=== PATIENT | female | born 1935 | race Caucasian/White ===

== ENCOUNTER 2018-08-06 17:02 | Emergency (ER) | payer MEDICARE, OTHER ==
[~2018-08-06] VITALS: Ht 167.6 cm; Wt 53.3 kg
[2018-08-06 18:25] LABS: ALANINE AMINOTRANSFERASE 105 U/L (12-78); ALBUMIN 3.4 g/dL (3.4-5.0); ANION GAP 11 mmol/L (5-15); CALCIUM 8.9 mg/dL (8.5-10.1); CHLORIDE 107 mmol/L (98-107); CREATININE 0.79 mg/dL (0.55-1.02)
[2018-08-06 18:29] LABS: ALKALINE PHOSPHATASE 154 U/L (45-117); BILIRUBIN,TOTAL 0.5 mg/dL (0.2-1.0); TOTAL PROTEIN 6.7 g/dL (6.4-8.2); TROPONIN I < 0.015 ng/mL (0.000-0.045)
[2018-08-06 19:48] LABS: BASOPHILS # (AUTO) 0.02 x10^3/uL (0-0.1); BASOPHILS % (AUTO) 0 % (0-1); EOSINOPHILS # (AUTO) 0.04 x10^3/uL (0-0.4); EOSINOPHILS % (AUTO) 1 % (1-7); LYMPHOCYTES % (AUTO) 14 % (22-44); MD NO; MEAN CORPUSCULAR HEMOGLOBIN 30.7 pg (27.0-34.8); MEAN CORPUSCULAR HGB CONC 33.4 g/dL (32.4-35.8); MEAN CORPUSCULAR VOLUME 91.8 fL (80-100); MEAN PLATELET VOLUME 8.9 fL (7.4-10.4); MONOCYTES # (AUTO) 0.19 x10^3/uL (0.2-0.8); MONOCYTES % (AUTO) 4 % (2-9); NEUTROPHILS # (AUTO) 4.25 x10^3/uL (1.8-6.8); NEUTROPHILS % (AUTO) 82 % (42-75); PLATELET COUNT 148 x10^3/uL (130-400); RED BLOOD COUNT 4.69 x10^6/uL (3.82-5.3); RED CELL DISTRIBUTION WIDTH 14.3 % (9.6-15.2)
[2018-08-06] MEDS ORDERED: LORazepam 0.5MG TABLET PO ONE (20:00)
[2018-08-06 21:23] VITALS: BP 136/113
== END 2018-08-06 21:26 | disposition home or self-care (01) ==
LOC: ED 17:20
DX: I71.4 Abdominal aortic aneurysm, without rupture (principal); K44.9 Diaphragmatic hernia without obstruction or gangrene; Z87.891 Personal history of nicotine dependence; Z90.89 Acquired absence of other organs
CPT/HCPCS: 36415; 71045; 76700; 80053; 84484; 85025; 93005; 99285

== ENCOUNTER 2018-08-15 16:33 | Emergency (ER) | payer MEDICARE, OTHER ==
[2018-08-15 17:26] LABS: BASOPHILS # (AUTO) 0.02 x10^3/uL (0-0.1); BASOPHILS % (AUTO) 1 % (0-1); EOSINOPHILS # (AUTO) 0.03 x10^3/uL (0-0.4); EOSINOPHILS % (AUTO) 1 % (1-7); LYMPHOCYTES # (AUTO) 0.93 x10^3/uL (1-3.4); LYMPHOCYTES % (AUTO) 27 % (22-44); MD NO; MEAN CORPUSCULAR HEMOGLOBIN 30.7 pg (27.0-34.8); MEAN CORPUSCULAR HGB CONC 33.6 g/dL (32.4-35.8); MEAN CORPUSCULAR VOLUME 91.4 fL (80-100); MEAN PLATELET VOLUME 8.5 fL (7.4-10.4); MONOCYTES # (AUTO) 0.29 x10^3/uL (0.2-0.8); MONOCYTES % (AUTO) 9 % (2-9); NEUTROPHILS # (AUTO) 2.13 x10^3/uL (1.8-6.8); NEUTROPHILS % (AUTO) 63 % (42-75); PLATELET COUNT 143 x10^3/uL (130-400); RED BLOOD COUNT 4.73 x10^6/uL (3.82-5.3); RED CELL DISTRIBUTION WIDTH 13.9 % (9.6-15.2)
[2018-08-15 17:36] LABS: ALANINE AMINOTRANSFERASE 70 U/L (12-78); ALBUMIN 3.7 g/dL (3.4-5.0); ANION GAP 7 mmol/L (5-15); CALCIUM 9.2 mg/dL (8.5-10.1); CHLORIDE 106 mmol/L (98-107)
[2018-08-15 17:37] LABS: ALKALINE PHOSPHATASE 108 U/L (45-117); BILIRUBIN,TOTAL 0.5 mg/dL (0.2-1.0); TOTAL PROTEIN 7.1 g/dL (6.4-8.2)
[2018-08-15 17:54] VITALS: BP 185/90
[2018-08-15 18:29] LABS: CULTURE INDICATED? YES; MICROSCOPIC INDICATED
[2018-08-15] MEDS ORDERED: NITROFURANTOIN 50 MG CAPSULE PO ONE (19:00)
== END 2018-08-15 19:49 | disposition home or self-care (01) ==
LOC: ED 19:04 → EDBD 19:04 → ED 19:49
DX: N30.90 Cystitis, unspecified without hematuria (principal); I10 Essential (primary) hypertension
CPT/HCPCS: 36415; 71046; 80053; 81001; 85025; 87077; 87086; 87186; 93005; 99285

== ENCOUNTER 2018-08-24 15:44 | Emergency (ER) | payer MEDICARE, OTHER ==
[~2018-08-24] VITALS: Ht 165.1 cm; Wt 53.0 kg
[2018-08-24] MEDS ORDERED: TROPICAMIDE OPHTH 1%, 15ML OP ONE (17:00)
[2018-08-24 18:57] VITALS: BP 136/81
== END 2018-08-24 18:59 | disposition home or self-care (01) ==
LOC: ED 16:05
DX: H53.123 Transient visual loss, bilateral (principal); I10 Essential (primary) hypertension; Z90.49 Acquired absence of other specified parts of digestive tract
CPT/HCPCS: 99283

== ENCOUNTER 2018-08-26 12:43 | Emergency (ER) | payer OTHER ==
[~2018-08-26] VITALS: Ht 165.1 cm; Wt 53.5 kg
[2018-08-26 12:57] VITALS: BP 174/63
== END 2018-08-26 14:00 | disposition home or self-care (01) ==
LOC: ED 13:54
DX: T47.1X5A Adverse effect of other antacids and anti-gastric-secretion drugs, initial encounter (principal); Y92.9 Unspecified place or not applicable
CPT/HCPCS: 99281

== ENCOUNTER → 2018-10-25 | Outpatient (CLI) | payer MEDICARE, OTHER ==
[~2018-10-25] MED LIST: NONE PER PT
== END | disposition home or self-care (01) ==
LOC: STAR 12:53
PROVIDERS: ATTEND Thoracic Surgery (Cardiothoracic Vascular Surgery)
DX: Z01.818 Encounter for other preprocedural examination (principal); K44.9 Diaphragmatic hernia without obstruction or gangrene

== ENCOUNTER 2018-10-30 06:48 | Inpatient (IN) | payer MEDICARE, OTHER ==
[~2018-10-30] VITALS: Ht 152.4 cm; Wt 49.2 kg
[~2018-10-30 06:48] MED LIST changes: +BUPIVACAINE/PF-EPI 0.5% 1:200K ONE
[2018-10-30] MEDS ORDERED: LACTATED RINGERS 1,000 ML IV SCH (08:35)
[2018-10-30] MEDS ORDERED: GABAPENTIN 300 MG CAPSULE PO STA (08:45)
[2018-10-30] MEDS ORDERED: APREPITANT 40 MG CAPSULE PO STA (08:45)
[2018-10-30] MEDS ORDERED: ACETAMINOPHEN 500 MG TABLET PO STA (08:45)
[2018-10-30] MEDS ORDERED: VANCOMYCIN PMX 1GM/200ML 200 ML IV ONE (09:00)
[2018-10-30] MEDS ORDERED: FENTANYL PF 250 MCG/5ML ONE (09:07)
[2018-10-30] MEDS ORDERED: CEFOTETAN PMX 2GM/50ML 50 ML ONE (09:07)
[2018-10-30] MEDS ORDERED: LIDOCAINE-MPF 2% ,5ML ONE (09:07)
[2018-10-30] MEDS ORDERED: PROPOFOL 10 MG/ML, 20ML ONE (09:07)
[2018-10-30] MEDS ORDERED: ROCURONIUM 10MG/ML,5ML ONE (09:08)
[2018-10-30] MEDS ORDERED: DEXAMETHASONE 4 MG/ML, 1ML ONE (09:09)
[2018-10-30] MEDS ORDERED: ONDANSETRON 2MG/ML, 2ML ONE ×2 (09:10)
[2018-10-30 09:12] VITALS: BP 173/72
[2018-10-30] MEDS ORDERED: METRONIDAZOLE PMX 500MG/100ML 100 ML ONE (09:29)
[2018-10-30] MEDS ORDERED: SUGAMMADEX 200 MG/2 ML IVPush ONE (09:42)
[2018-10-30] MEDS ORDERED: MEPERIDINE/PF 25MG/0.5ML IVPush PRN (10:30)
[2018-10-30] MEDS ORDERED: hydrALAzine 20 MG/ML, 1ML IV PRN ×2 (10:30→11:30)
[2018-10-30] MEDS ORDERED: FENTANYL PF 100 MCG/2ML IV PRN (10:30)
[2018-10-30] MEDS ORDERED: HYDROmorphone 2 MG/ML, 1ML IVPush PRN (10:30)
[2018-10-30] MEDS ORDERED: PROMETHAZINE 25 MG/ML, 1ML IV PRN (10:30)
[2018-10-30] MEDS ORDERED: HALOPERIDOL 5 MG/ML IV PRN (10:30)
[2018-10-30] MEDS ORDERED: DIPHENHYDRAMINE 50 MG/ML, 1ML ONE (11:13)
[2018-10-30] MEDS ORDERED: hydrALAzine 20 MG/ML, 1ML ONE (11:27)
[2018-10-30] MEDS ORDERED: HYDROmorphone 2 MG/ML, 1ML ONE (11:27)
[2018-10-30] MEDS ORDERED: ENALAPRILAT 1.25 MG/ML, 2ML IV PRN (11:30)
[2018-10-30] MEDS ORDERED: morphine SULFATE 10 MG/ML, 1ML IV PRN (11:30)
[2018-10-30] MEDS ORDERED: HYDROcodone/APAP 7.5-325MG/15ML UDC PO PRN (11:30)
[2018-10-30] MEDS ORDERED: ONDANSETRON 2MG/ML, 2ML IVPush PRN (11:30)
[2018-10-30] MEDS ORDERED: LORazepam 2 MG/ML, 1ML IV PRN (11:30)
[2018-10-30] MEDS: FAMOTIDINE 20 MG/2 ML IV SCH ×2 (11:30→23:30)
[2018-10-30] MEDS ORDERED: ACETAMINOPHEN 650 MG/20.3 ML UDC ONE (11:57)
[2018-10-30 12:35] VITALS: BP 144/72
[2018-10-30] MEDS: LACTATED RINGERS 1,000 ML IV SCH (13:20)
[2018-10-30 14:20] VITALS: BP 139/67
[2018-10-30 17:42] VITALS: BP 139/73
[2018-10-30 20:00] VITALS: BP 145/65
[2018-10-31 02:03] VITALS: BP 162/77
[2018-10-31] MEDS: LACTATED RINGERS 1,000 ML IV SCH ×2 (02:42→16:20)
[2018-10-31 08:16] VITALS: BP 148/78
[2018-10-31] MEDS: ENOXAPARIN 30 MG/0.3 ML SQ SCH (09:00)
[2018-10-31] MEDS: FAMOTIDINE 20 MG/2 ML IV SCH ×2 (09:03→23:30)
[2018-10-31 13:37] VITALS: BP 165/80
[2018-10-31 19:09] VITALS: BP 156/71
[2018-11-01 02:00] VITALS: BP 154/71
[2018-11-01] MEDS: FAMOTIDINE 20 MG/2 ML IV SCH (03:14)
[2018-11-01] MEDS: LACTATED RINGERS 1,000 ML IV SCH (05:40)
[2018-11-01 09:04] VITALS: BP 146/79
[2018-11-01] MEDS: ENOXAPARIN 30 MG/0.3 ML SQ SCH (09:59)
[2018-11-01 11:21] VITALS: BP 130/80
== END 2018-11-01 11:50 | disposition home or self-care (01) | DRG 328 ==
LOC: OUT 06:48 → ORIP 11:14 → 4NOR 12:29 → DCLOUNGE 11-01 11:37
PROVIDERS: ADMIT Thoracic Surgery (Cardiothoracic Vascular Surgery); ATTEND Thoracic Surgery (Cardiothoracic Vascular Surgery)
PROC: 0BUT4JZ Supplement Diaphragm with Synthetic Substitute, Percutaneous Endoscopic Approach (ICD-10-PCS; 2018-10-30)
PROC: 0DV44ZZ Restriction of Esophagogastric Junction, Percutaneous Endoscopic Approach (ICD-10-PCS; principal; 2018-10-30 10:00)
DX: K44.9 Diaphragmatic hernia without obstruction or gangrene (principal); R13.10 Dysphagia, unspecified
CPT/HCPCS: G0378; J1100; J1650; J2405; J2704; J3010; J3370; J3490; J0360; J7120; Q4116

== ENCOUNTER → 2018-11-22 | Outpatient (CLI) | payer MEDICARE ==
[~2018-11-22] MED LIST changes: -BUPIVACAINE/PF-EPI 0.5% 1:200K ONE
== END | disposition home or self-care (01) ==
LOC: RAD 11:18
PROVIDERS: ATTEND Physician Assistant
DX: K22.2 Esophageal obstruction (principal); K22.5 Diverticulum of esophagus, acquired; F45.8 Other somatoform disorders; Z87.891 Personal history of nicotine dependence; Z72.89 Other problems related to lifestyle; Z88.2 Allergy status to sulfonamides; Z88.6 Allergy status to analgesic agent; Z91.041 Radiographic dye allergy status
CPT/HCPCS: 74241

== ENCOUNTER → 2019-03-24 | Outpatient (CLI) | payer MEDICARE | END | disposition home or self-care (01) | LOC: CFH 09:33 → EDBD 10:15 | PROVIDERS: ATTEND Internal Medicine Gastroenterology | DX: I71.4 Abdominal aortic aneurysm, without rupture (principal); I74.09 Other arterial embolism and thrombosis of abdominal aorta | CPT/HCPCS: 76700 ==

== ENCOUNTER 2021-03-11 11:50 | Emergency (ER) | payer MEDICARE, OTHER ==
[~2021-03-11] VITALS: Ht 165.1 cm; Wt 55.0 kg
--- NOTE | 2021-03-11 12:45 | NUR ---
PT TO ROOM FROM LOBBY VIA WHEELCHAIR.
--- NOTE | 2021-03-11 13:20 | NUR ---
PT C/O LOW BACK PAIN; STARTED 1 WEEK AGO AFTER TRYING TO LIFT HEAVY OBJECT. ABLE TO MOVE SLOWLY; ABLE TO STAND W/ ASSISTANCE. PEDAL PULSES STRONG & REG BILAT. BURN TO MID BACK; PT STATES SHE WAS USING A HOT WATER BOTTLE. BANDAID APPLIED. TOOK TYLENOL 500MG HALF TABLET AT 1030 TODAY.
--- NOTE | 2021-03-11 14:39 | NUR ---
PT RESTING ON [place], SPEAKING ON OWN CELL PHONE.
[2021-03-11 14:43] VITALS: BP 158/69
--- NOTE | 2021-03-11 14:55 | NUR ---
PT REPORT TO GATO TSAI. PT TO BE DC'D
[2021-03-11] MEDS ORDERED: NEOSPORIN OINT. PKT 1 PACKET ONE (14:56)
== END 2021-03-11 15:22 | disposition home or self-care (01) ==
LOC: ED 14:27
DX: S32.019A Unspecified fracture of first lumbar vertebra, initial encounter for closed fracture (principal); S39.012A Strain of muscle, fascia and tendon of lower back, initial encounter; M19.90 Unspecified osteoarthritis, unspecified site; I10 Essential (primary) hypertension; Z87.891 Personal history of nicotine dependence; Z90.89 Acquired absence of other organs; X58.XXXA Exposure to other specified factors, initial encounter; Y93.89 Activity, other specified; Y92.89 Other specified places as the place of occurrence of the external cause; Y99.8 Other external cause status
CPT/HCPCS: 72110; 99283

== ENCOUNTER 2021-04-06 11:55 | Inpatient (IN) | payer MEDICARE ==
[~2021-04-06] VITALS: Ht 165.1 cm; Wt 58.2 kg
--- NOTE | 2021-04-06 12:15 | NUR ---
late entry for 1215 d/t patient care: PT SHAY, REPORT FROM EMS. PT HAS C/O BILATERAL LOWER BACK PAIN X 2 MONTHS , NO TRAUMA OR FALL , WORSE WITH MOVEMENT. PT DENIES BOWEL/BLADDER DYSFUNCTION. PT A&O, RESPS EVEN AND UNLABORED. 4/5 STRENGTH TO BILATERAL EXTREMITIES. BP AND SPO2 MONITORS IN PLACE .CALL LIGHT IN REACH.
[2021-04-06 12:36] LABS: BASOPHILS % (AUTO) 1 % (0-1); EOSINOPHILS % (AUTO) 0 % (1-7); LYMPHOCYTES % (AUTO) 24 % (22-44); MEAN CORPUSCULAR HEMOGLOBIN 27.2 pg (27.0-34.8); MEAN CORPUSCULAR HGB CONC 32.9 g/dL (32.4-35.8); MEAN PLATELET VOLUME 7.8 fL (7.4-10.4); MONOCYTES % (AUTO) 8 % (2-9); NEUTROPHILS % (AUTO) 66 % (42-75); PLATELET COUNT 157 x10^3/uL (130-400); RED CELL DISTRIBUTION WIDTH 15.4 % (9.6-15.2)
[2021-04-06] MEDS ORDERED: MORPHINE SULFATE 4 MG/ML, 1ML ONE ×2 (12:47→15:21)
[2021-04-06 12:48] LABS: ALBUMIN 3.4 g/dL (3.4-5.0); ANION GAP 7 mmol/L (5-15); CALCIUM 9.6 mg/dL (8.5-10.1); CHLORIDE 110 mmol/L (98-107)
[2021-04-06 12:52] LABS: ALANINE AMINOTRANSFERASE 22 U/L (12-78); ALKALINE PHOSPHATASE 83 U/L (45-117); BILIRUBIN,TOTAL 0.6 mg/dL (0.2-1.0); CREATININE 0.77 mg/dL (0.55-1.02); TOTAL PROTEIN 7.6 g/dL (6.4-8.2)
[2021-04-06] MEDS: MORPHINE SULFATE 4 MG/ML, 1ML IVPush PRN ×2 (12:53→15:22)
--- NOTE | 2021-04-06 13:15 | NUR ---
LATE ENTRY FOR 1315: PT STRAIGHT CATH'D WITH STERILE TECHNIQUE, TOLERATED WELL. PT STATES PAIN RESOLVED, DECLINES ADDITIONAL PAIN MED.
[2021-04-06 13:51] LABS: MICROSCOPIC AUTO
[2021-04-06] MEDS ORDERED: FOSFOMYCIN 3 GM PACKET PO ONE (14:30)
--- NOTE | 2021-04-06 14:45 | NUR ---
report given to manoj mancuso
[2021-04-06] MEDS ORDERED: ONDANSETRON ODT 4 MG ONE (14:56)
[2021-04-06] MEDS ORDERED: HYDROcodone/APAP 5/325 TABLET ONE (14:57)
[2021-04-06] MEDS ORDERED: ONDANSETRON 4 MG TABLET PO ONE (15:00)
[2021-04-06] MEDS: HYDROcodone/APAP 5/325 TABLET PO ONE ×2 (15:11→15:23)
[2021-04-06] MEDS ORDERED: FOSFOMYCIN 3 GM PACKET ONE (15:13)
--- NOTE | 2021-04-06 15:32 | NUR ---
hospitalist Eugene GUERIN notified pt's bp trending up, now 186/102. aware, task RN has recently medicated with morphine. states he will enter orders for prn bp meds.
[2021-04-06] MEDS ORDERED: ONDANSETRON 2MG/ML, 2ML IVPush PRN (16:00)
[2021-04-06] MEDS ORDERED: LABETALOL 5MG/ML, 20ML IVPush PRN (16:00)
[2021-04-06] MEDS ORDERED: ONDANSETRON ODT 4 MG PO PRN (16:00)
[2021-04-06] MEDS ORDERED: hydrALAzine 20 MG/ML, 1ML ONE (16:41)
[2021-04-06] MEDS: hydrALAzine 20 MG/ML, 1ML IVPush PRN (16:43)
[2021-04-06] MEDS: LACTATED RINGERS 1,000 ML IV SCH (18:05)
[2021-04-06 18:16] VITALS: BP 176/78
[2021-04-06 18:36] VITALS: BP 162/83
[2021-04-06] MEDS: morphine SULFATE 10 MG/ML, 1ML IVPush PRN (19:29)
[2021-04-07 02:59] VITALS: BP 179/85
[2021-04-07] MEDS: hydrALAzine 20 MG/ML, 1ML IVPush PRN (03:19)
[2021-04-07 03:51] VITALS: BP 148/78
[2021-04-07 07:56] VITALS: BP 127/72
[2021-04-07] MEDS: HYDROcodone/APAP 5/325 TABLET PO PRN ×2 (08:54→17:05)
[2021-04-07 12:26] LABS: ANION GAP 10 mmol/L (5-15); CALCIUM 9.4 mg/dL (8.5-10.1); CHLORIDE 104 mmol/L (98-107)
[2021-04-07 12:27] LABS: CREATININE 0.67 mg/dL (0.55-1.02)
[2021-04-07] MEDS: morphine SULFATE 10 MG/ML, 1ML IVPush PRN (12:27)
[2021-04-07] MEDS: LACTATED RINGERS 1,000 ML IV SCH (12:33)
[2021-04-07 13:52] VITALS: BP 144/77
[2021-04-07 19:26] VITALS: BP 150/78
[2021-04-08] VITALS (7 sets, daily range): BP systolic 100–179; BP diastolic 52–82
[2021-04-08] MEDS: morphine SULFATE 10 MG/ML, 1ML IVPush PRN ×3 (04:21→17:04)
[2021-04-08] MEDS: LACTATED RINGERS 1,000 ML IV SCH (07:56)
[2021-04-08] MEDS ORDERED: EPHEDRINE 50 MG/ML, 1ML IVPush PRN (11:30)
[2021-04-08] MEDS ORDERED: ACETAMINOPHEN 325 MG TABLET PO PRN (11:30)
[2021-04-08] MEDS ORDERED: FENTANYL PF 100 MCG/2ML IV PRN (11:30)
[2021-04-08] MEDS ORDERED: HYDROmorphone 1 MG/ML, 1ML INJ IVPush PRN (11:30)
[2021-04-08] MEDS ORDERED: LABETALOL 5MG/ML, 20ML IV PRN (11:30)
[2021-04-08] MEDS ORDERED: hydrALAzine 20 MG/ML, 1ML IV PRN (11:30)
[2021-04-08] MEDS ORDERED: PROMETHAZINE 25 MG/ML, 1ML IVPush PRN (11:30)
[2021-04-08] MEDS ORDERED: OXYcodone 5 MG/5 ML ORAL.SOL UDC PO PRN (11:30)
[2021-04-08] MEDS ORDERED: ONDANSETRON 2MG/ML, 2ML IVPush PRN (11:30)
[2021-04-08] MEDS ORDERED: LIDOCAINE 1%, 20ML ONE (12:34)
[2021-04-08] MEDS ORDERED: FENTANYL PF 100 MCG/2ML ONE (13:19)
[2021-04-08] MEDS ORDERED: EPHEDRINE 50 MG/ML, 1ML ONE (13:45)
[2021-04-08] MEDS ORDERED: CEFAZOLIN 1,000 MG ONE (13:45)
[2021-04-08] MEDS ORDERED: SUCCINYLCHOLINE 20 MG/ML, 10ML ONE (13:45)
[2021-04-08] MEDS ORDERED: PROPOFOL 10 MG/ML, 20ML ONE (13:45)
[2021-04-08] MEDS ORDERED: ONDANSETRON 2MG/ML, 2ML ONE (13:45)
[2021-04-08] MEDS ORDERED: DEXAMETHASONE 4 MG/ML, 1ML ONE (13:45)
[2021-04-08] MEDS ORDERED: HYDROmorphone 1 MG/ML, 1ML INJ ONE (14:06)
[2021-04-09] MEDS: HYDROcodone/APAP 5/325 TABLET PO PRN ×3 (00:12→11:19)
[2021-04-09 00:38] VITALS: BP 162/72
[2021-04-09 02:20] VITALS: BP 139/78
[2021-04-09 04:41] VITALS: BP 151/86
[2021-04-09 07:13] VITALS: BP 133/66
[2021-04-09] MEDS: LACTATED RINGERS 1,000 ML IV SCH (08:00)
[2021-04-09 14:10] VITALS: BP 123/70
[2021-04-09 20:29] VITALS: BP 119/71
[2021-04-10 01:40] VITALS: BP 122/58
[2021-04-10] MEDS: LACTATED RINGERS 1,000 ML IV SCH (04:00)
[2021-04-10 07:47] VITALS: BP 168/78
[2021-04-10] MEDS: SENNA/DOCUSATE TABLET PO SCH (07:47)
[2021-04-10] MEDS: HYDROcodone/APAP 5/325 TABLET PO PRN ×2 (07:47→18:15)
[2021-04-10 09:06] LABS: BASOPHILS % (AUTO) 1 % (0-1); EOSINOPHILS % (AUTO) 1 % (1-7); LYMPHOCYTES % (AUTO) 19 % (22-44); MEAN CORPUSCULAR HEMOGLOBIN 27.5 pg (27.0-34.8); MEAN CORPUSCULAR HGB CONC 33.4 g/dL (32.4-35.8); MEAN PLATELET VOLUME 7.9 fL (7.4-10.4); MONOCYTES % (AUTO) 8 % (2-9); NEUTROPHILS % (AUTO) 72 % (42-75); PLATELET COUNT 169 x10^3/uL (130-400); RED BLOOD COUNT 4.58 x10^6/uL (3.82-5.3); RED CELL DISTRIBUTION WIDTH 15.8 % (9.6-15.2)
[2021-04-10 09:15] LABS: ALANINE AMINOTRANSFERASE 19 U/L (12-78); ALBUMIN 3.1 g/dL (3.4-5.0); ANION GAP 5 mmol/L (5-15); CALCIUM 9.4 mg/dL (8.5-10.1); CHLORIDE 105 mmol/L (98-107); CREATININE 0.62 mg/dL (0.55-1.02)
[2021-04-10 09:17] LABS: ALKALINE PHOSPHATASE 100 U/L (45-117); BILIRUBIN,TOTAL 0.5 mg/dL (0.2-1.0); TOTAL PROTEIN 6.9 g/dL (6.4-8.2)
[2021-04-10 13:57] VITALS: BP 137/80
[2021-04-10 18:29] VITALS: BP 126/74
[2021-04-10] MEDS: MAGNESIUM HYDROXIDE 8%, 30ML UDC PO SCH (20:05)
[2021-04-11 00:40] VITALS: BP 153/84
[2021-04-11] MEDS: SENNA/DOCUSATE TABLET PO SCH (07:30)
[2021-04-11] MEDS: MAGNESIUM HYDROXIDE 8%, 30ML UDC PO SCH ×2 (07:30→21:00)
[2021-04-11 07:57] VITALS: BP 160/83
[2021-04-11 08:20] VITALS: BP 140/67
[2021-04-11] MEDS ORDERED: SENN-211 PO (09:12)
[2021-04-11] MEDS ORDERED: HYDR-2214 PO (09:12)
[2021-04-11] MEDS ORDERED: BISACODYL 10 MG SUPP PR PRN (10:30)
[2021-04-11 13:33] VITALS: BP 146/71
[2021-04-11 18:32] VITALS: BP 132/69
[2021-04-11] MEDS: HYDROcodone/APAP 5/325 TABLET PO PRN (18:49)
[2021-04-12 01:21] VITALS: BP 151/72
[2021-04-12] MEDS: SENNA/DOCUSATE TABLET PO SCH (07:20)
[2021-04-12] MEDS: MAGNESIUM HYDROXIDE 8%, 30ML UDC PO SCH (07:20)
[2021-04-12 08:02] VITALS: BP 155/86
[2021-04-12] MEDS: HYDROcodone/APAP 5/325 TABLET PO PRN ×2 (10:14→14:12)
[2021-04-12] MEDS ORDERED: CALC1TAB68 PO (11:58)
[2021-04-12 13:44] VITALS: BP 130/79
[2021-05-16] MEDS ORDERED: morphine PO (15:31)
[2021-05-16] MEDS ORDERED: TRAM50TA2 PO (15:33)
[2021-05-24] MEDS ORDERED: METH-639 PO (17:16)
== END 2021-04-12 14:20 | DRG 478 ==
LOC: ED 13:23 → EDIP 14:21 → 3N 16:57 → 4NE 04-08 19:37
PROVIDERS: ADMIT Internal Medicine; ATTEND Hospitalist
PROC: 0QS03ZZ Reposition Lumbar Vertebra, Percutaneous Approach (ICD-10-PCS; 2021-04-08)
PROC: 0PS43ZZ Reposition Thoracic Vertebra, Percutaneous Approach (ICD-10-PCS; 2021-04-08)
PROC: 0PU43JZ Supplement Thoracic Vertebra with Synthetic Substitute, Percutaneous Approach (ICD-10-PCS; 2021-04-08)
PROC: 0PU43JZ Supplement Thoracic Vertebra with Synthetic Substitute, Percutaneous Approach (ICD-10-PCS; 2021-04-08)
PROC: 0QB03ZX Excision of Lumbar Vertebra, Percutaneous Approach, Diagnostic (ICD-10-PCS; 2021-04-08)
PROC: 0PB43ZX Excision of Thoracic Vertebra, Percutaneous Approach, Diagnostic (ICD-10-PCS; principal; 2021-04-08 13:30)
DX: S22.081A Stable burst fracture of T11-T12 vertebra, initial encounter for closed fracture (principal); E46 Unspecified protein-calorie malnutrition; N30.00 Acute cystitis without hematuria; B96.89 Other specified bacterial agents as the cause of diseases classified elsewhere; I16.0 Hypertensive urgency; G89.29 Other chronic pain; H54.7 Unspecified visual loss; I71.4 Abdominal aortic aneurysm, without rupture; K44.9 Diaphragmatic hernia without obstruction or gangrene; M19.90 Unspecified osteoarthritis, unspecified site; M48.061 Spinal stenosis, lumbar region without neurogenic claudication; Z88.9 Allergy status to unspecified drugs, medicaments and biological substances; Z87.891 Personal history of nicotine dependence; Z88.2 Allergy status to sulfonamides; Z88.6 Allergy status to analgesic agent; Z88.1 Allergy status to other antibiotic agents; Z91.041 Radiographic dye allergy status; Z68.21 Body mass index [BMI] 21.0-21.9, adult; Z90.49 Acquired absence of other specified parts of digestive tract; Z20.822 Contact with and (suspected) exposure to COVID-19
CPT/HCPCS: 22513; 36415; 72131; 72148; 80048; 80053; 81001; 83883; 84155; 84165; 85025; 87086; 87635; 93005; 96374; 96376; G0378; J0690; J1100; J1170; J2405; J2704; J3010; 22511; C1713; J0330; J0360; J2270; J7120